=== PATIENT | male | born 1980 | race Caucasian/White ===

== ENCOUNTER 2017-09-13 02:47 | Inpatient (IN) | payer OTHER ==
[2017-09-13] VITALS (7 sets, daily range): BP systolic 130–175; BP diastolic 64–106; PULSE 53–105; RESP 16–20; TEMP 97.1–98.6; O2SAT 96–100
[~2017-09-13] VITALS: Ht 193 cm; Wt 95.0 kg
[2017-09-13] MEDS ORDERED: ONDANSETRON HCL 4 MG/2 ML VIAL IV PUSH ONE ×2 (03:30→05:45)
[2017-09-13 03:35] LABS: AUTOMATED NEUTROPHIL # 11.8 TH/MM3 (1.8-7.7); BASOPHIL # 0.1 TH/MM3 (0-0.2); BASOPHIL % 0.4 % (0.0-2.0); EOSINOPHIL # 0.2 TH/MM3 (0-0.4); EOSINOPHIL % 1.1 % (0.0-4.0); HEMATOCRIT 43.3 % (39.0-51.0); HEMOGLOBIN 15.5 GM/DL (13.0-17.0); LYMPH % 25.4 % (9.0-44.0); LYMPHOCYTE # 4.3 TH/MM3 (1.0-4.8); MEAN CELL VOLUME 93.8 FL (80.0-100.0); MEAN CORPUSCULAR HEMOGLOBIN 33.6 PG (27.0-34.0); MEAN CORPUSCULAR HGB CONC 35.8 % (32.0-36.0); MEAN PLATELET VOLUME 7.8 FL (7.0-11.0); MONO % 3.7 % (0.0-8.0); MONOCYTE # 0.6 TH/MM3 (0-0.9); NEUT % 69.4 % (16.0-70.0); PLATELET COUNT 224 TH/MM3 (150-450); RED BLOOD COUNT 4.61 MIL/MM3 (4.50-5.90)
[2017-09-13 04:02] LABS: BILIRUBIN, URINE NEG (NEG); BLOOD, URINE NEG (NEG); GLUCOSE,URINE NEG (NEG); KETONE, URINE 10 mg/dL (NEG); NITRITE,URINE NEG (NEG); URINE COLOR YELLOW (YELLW/STRAW); URINE LEUKOCYTE ESTERASE TRACE (NEG)
[2017-09-13 04:16] LABS: ALBUMIN 4.3 GM/DL (3.4-5.0); ALT (GPT) 21 U/L (12-78); AST (GOT) 18 U/L (15-37); BICARBONATE 31.2 MEQ/L (21.0-32.0); BLOOD UREA NITROGEN 18 MG/DL (7-18); CALCIUM 9.2 MG/DL (8.5-10.1); CHLORIDE 103 MEQ/L (98-107); CREATININE 0.97 MG/DL (0.60-1.30); GLOMERULAR FILTRATION RATE 88 ML/MIN (>89); GLUCOSE,RANDOM 122 MG/DL (74-106); SODIUM (NA) 139 MEQ/L (136-145)
[2017-09-13 04:17] LABS: ALKALINE PHOSPHATASE 49 U/L (45-117); TOTAL BILIRUBIN ADULT 0.9 MG/DL (0.2-1.0); TOTAL PROTEIN 8.1 GM/DL (6.4-8.2)
[2017-09-13] MEDS ORDERED: MORPHINE SULFATE 2 MG/ML INJ IV PUSH ONE (04:30)
[2017-09-13] MEDS ORDERED: SODIUM CHLOR 0.9% 1000 ML INJ 1,000 ML IV ONE ×2 (04:30→05:45)
[2017-09-13] MEDS ORDERED: IOHEXOL 350 MG/ML 10 ML VIAL (for RAD DIAG) IVCONTRAST ONE (04:37)
--- NOTE | 2017-09-13 04:54 | RADRPT ---
EXAM DATE/TIME: 09/13/2017 04:28 [place] COMPARISON: No previous studies available for comparison. INDICATIONS : Abdominal pain with nausea and vomiting. IV CONTRAST: 100 cc Omnipaque 350 (iohexol) IV ORAL CONTRAST: No oral contrast ingested. RADIATION DOSE: 7.44 CTDIvol (mGy) MEDICAL HISTORY : None SURGICAL HISTORY : None. ENCOUNTER: Initial ACUITY: 1 day PAIN SCALE: 6/10 LOCATION: abdomen TECHNIQUE: Volumetric scanning of the abdomen and pelvis was performed. Using automated exposure control and ad justment of the mA and/or kV according to patient size, radiation dose was kept as low as reasonably achievable to obtain optimal diagnostic quality images. DICOM format image data is available electro nically for review and comparison. FINDINGS: LOWER LUNGS: The visualized lower lungs are clear. LIVER: Homogeneous density without lesion. There is no dilation of the biliary tree. Numerous small stones in the gallbladder. The wall appears thick, for example series 2 image 41. No pericholecystic fluid. No duct stone or ductal dilatation demonstrated. SPLEEN: Normal size without lesion. PANCREAS: Within normal limits. KIDNEYS: Normal in size and shape. There is no mass, stone or hydronephrosis. ADRENAL GLANDS: Within normal limits. VASCULAR: There is no aortic aneurysm. BOWEL/MESENTERY: The stomach, small bowel, and colon demonstrate no acute abnormality. There is no free intraperitone al air or fluid. Normal appendix. ABDOMINAL WALL: Within normal limits. RETROPERITONEUM: There is no lymphadenopathy. BLADDER: No wall thickening or mass. REPRODUCTIVE: Within normal limits. INGUINAL: There is no lymphadenopathy or hernia. MUSCULOSKELETAL: No acute bony abnormality demonstrated. CONCLUSION: 1. Cholelithiasis and with CT findings concerning for early or mild acute cholecystitis in the proper clinical setting. No ductal dilatation. 2. Otherwise negative CT of the abdomen and pelvis. Patrice Grimes MD on September 13, 2017 at 4:50 Board Certified Radiologist. This report was verified electronically.
[2017-09-13] MEDS ORDERED: PIPERACIL-TAZO 4.5 GM PREMIX 100 ML IV ONE (05:45)
[2017-09-13] MEDS ORDERED: HYDROmorphone HCL PF 2 MG/ML VIAL IV PUSH ONE (05:45)
[2017-09-13] MEDS ORDERED: SODIUM CHLOR 0.9% 1000 ML INJ 1,000 ML IV SCH (05:57)
[2017-09-13] MEDS ORDERED: SENNOSIDES 8.6 MG TAB PO PRN (06:00)
[2017-09-13] MEDS ORDERED: BISACODYL 10 MG SUPP RECTAL PRN (06:00)
[2017-09-13] MEDS ORDERED: LACTULOSE SYRUP 20 GM/30 ML CUP PO PRN (06:00)
[2017-09-13] MEDS ORDERED: ONDANSETRON HCL 4 MG/2 ML VIAL IVP PRN (06:00)
[2017-09-13] MEDS ORDERED: SODIUM CHLORIDE 0.9% FLUSH 10 ML FLUSH IV FLUSH PRN (06:00)
[2017-09-13] MEDS ORDERED: MORPHINE SULFATE 2 MG/ML INJ IV PUSH PRN (06:00)
[2017-09-13] MEDS ORDERED: MAGNESIUM HYDROXIDE SUSP 30 ML CUP PO PRN (06:00)
[2017-09-13] MEDS ORDERED: ACETAMINOPHEN/HYDROcodone 325 MG/5 MG TAB PO PRN (06:00)
[2017-09-13] MEDS ORDERED: ACETAMINOPHEN 325 MG TAB PO PRN (06:00)
--- NOTE | 2017-09-13 06:04 | PD ---
HPI Chief Complaint: Abdominal Pain Time Seen by Provider: 04:18 Travel History International Travel<30 days: No Contact w/Intl Traveler<30days: No Traveled to known affect area: No History of Present Illness HPI 36-year-old male presents to the emergency department for complaint of severe epigastric pain since midnight. Patient denies any known medical problems. Patient had nausea and vomiting. Patient is vomited stomach contents without bilious emesis coffee-ground emesis or hematemesis. Patient denies diarrhea or change in bowel habits. Patient does admit to drinking alcohol this evening prior to going to bed. Patient states he does drink alcohol but has no chronic medical conditions. No prior history of peptic ulcer disease gastritis pancreatitis or gallbladder disorder. Patient denies chest pain or shortness of breath. PFSH Past Medical History Narrative Medical Negative past medical history negative surgical history; positive alcohol use; nursing notes reviewed Immunizations Current: Yes Tetanus Vaccination: Unknown Influenza Vaccination: No Social History Alcohol Use: No Tobacco Use: Yes Substance Use: No Allergies-Medications (Allergen,Severity, Reaction): Coded Allergies: No Known Allergies (Unverified , 09/13/17) Reported Meds & Prescriptions Reported Meds & Active Scripts Active No Active Prescriptions or Reported Medications Review of Systems Except as stated in HPI: all other systems reviewed are Neg General / Constitutional: No: Fever, Chills HENT: No: Congestion Cardiovascular: No: Chest Pain or Discomfort Respiratory: No: Shortness of Breath Gastrointestinal: Positive: Nausea, Vomiting, Abdominal Pain, No: Diarrhea, Hematemesis, Hematochezia, Loss of Appetite Genitourinary: No: Dysuria, Flank Pain Musculoskeletal: No: Myalgias, Arthralgias Skin: No Rash Neurologic: No: Weakness Psychiatric: No: Anxiety Hematologic/Lymphatic: No: Easy Bruising Physical Exam Narrative GENERAL: Well-developed well-nourished male no acute respiratory distress in obvious discomfort SKIN: Warm and dry. HEAD: Normocephalic. EYES: No scleral icterus. No injection or drainage. NECK: Supple, trachea midline. No JVD or lymphadenopathy. CARDIOVASCULAR: Regular rate and rhythm without murmurs, gallops, or rubs. RESPIRATORY: Breath sounds equal bilaterally. No accessory muscle use. GASTROINTESTINAL: Abdomen soft, reproducible epigastric tenderness to direct palpation, nondistended. MUSCULOSKELETAL: No cyanosis, or edema. BACK: Nontender without obvious deformity. No CVA tenderness. Data Data Last Documented VS Vital Signs Date Time Temp Pulse Resp B/P (MAP) Pulse Ox O2 Delivery O2 Flow Rate FiO2 09/13/17 03:45 98.6 105 18 135/64 (87) 98 Room Air Orders Orders Complete Blood Count With Diff (09/13/17 03:14) Comprehensive Metabolic Panel (09/13/17 03:14) Urinalysis - C+S If Indicated (09/13/17 03:14) Iv Access Insert/Monitor (09/13/17 03:14) Oxygen Administration (09/13/17 03:14) Oximetry (09/13/17 03:14) Lipase (09/13/17 03:14) Electrocardiogram (09/13/17 ) Ondansetron Inj (Zofran Inj) (09/13/17 03:30) Ct Abd/Pel W Iv Contrast(Rout) (09/13/17 ) Morphine Inj (Morphine Inj) (09/13/17 04:30) Sodium Chlor 0.9% 1000 Ml Inj (Ns 1000 M (09/13/17 04:30) Iohexol 350 Inj (Omnipaque 350 Inj) (09/13/17 04:37) Piperacil-Tazo 4.5 Gm Premix (Zosyn 4.5 (09/13/17 05:45) Ondansetron Inj (Zofran Inj) (09/13/17 05:45) Hydromorphone Pf Inj (Dilaudid Pf Inj) (09/13/17 05:45) NPO (09/13/17 05:36) Sodium Chlor 0.9% 1000 Ml Inj (Ns 1000 M (09/13/17 05:45) Troponin I (09/13/17 03:15) Admit Order (Ed Use Only) (09/13/17 ) Vital Signs (Adult) Q4H (09/13/17 05:55) Diet Npo (09/13/17 Breakfast) Activity Oob With Assistance (09/13/17 05:55) Notify Dr: Other (09/13/17 05:55) Labs Laboratory Tests Test 09/13/17 03:15 09/13/17 03:20 White Blood Count 17.0 TH/MM3 Red Blood Count 4.61 MIL/MM3 Hemoglobin 15.5 GM/DL Hematocrit 43.3 % Mean Corpuscular Volume 93.8 FL Mean Corpuscular Hemoglobin 33.6 PG Mean Corpuscular Hemoglobin Concent 35.8 % Red Cell Distribution Width 13.0 % Platelet Count 224 TH/MM3 Mean Platelet Volume 7.8 FL Neutrophils (%) (Auto) 69.4 % Lymphocytes (%) (Auto) 25.4 % Monocytes (%) (Auto) 3.7 % Eosinophils (%) (Auto) 1.1 % Basophils (%) (Auto) 0.4 % Neutrophils # (Auto) 11.8 TH/MM3 Lymphocytes # (Auto) 4.3 TH/MM3 Monocytes # (Auto) 0.6 TH/MM3 Eosinophils # (Auto) 0.2 TH/MM3 Basophils # (Auto) 0.1 TH/MM3 CBC Comment DIFF FINAL Differential Comment Blood Urea Nitrogen 18 MG/DL Creatinine 0.97 MG/DL Random Glucose 122 MG/DL Total Protein 8.1 GM/DL Albumin 4.3 GM/DL Calcium Level 9.2 MG/DL Alkaline Phosphatase 49 U/L Aspartate Amino Transf (AST/SGOT) 18 U/L Alanine Aminotransferase (ALT/SGPT) 21 U/L Total Bilirubin 0.9 MG/DL Sodium Level 139 MEQ/L Potassium Level 3.9 MEQ/L Chloride Level 103 MEQ/L Carbon Dioxide Level 31.2 MEQ/L Anion Gap 5 MEQ/L Estimat Glomerular Filtration Rate 88 ML/MIN Lipase 155 U/L Urine Color YELLOW Urine Turbidity CLEAR Urine pH 6.0 Urine Specific [place] 1.030 Urine Protein TRACE mg/dL Urine Glucose (UA) NEG mg/dL Urine Ketones 10 mg/dL Urine Occult Blood NEG Urine Nitrite NEG Urine Bilirubin NEG Urine Urobilinogen 2.0 MG/DL Urine Leukocyte Esterase TRACE Urine RBC 1 /hpf Urine WBC 1 /hpf Microscopic Urinalysis Comment CULT NOT INDICATED MDM Medical Decision Making Medical Screen Exam Complete: Yes Emergency Medical Condition: Yes Medical Record Reviewed: Yes Interpretation(s) Last Impressions Abdomen/Pelvis CT 09/13/17 0000 Signed Impressions: Service Date/Time: Wednesday, September 13, 2017 04:28 - CONCLUSION: 1. Cholelithiasis and with CT findings concerning for early or mild acute cholecystitis in the proper clinical setting. No ductal dilatation. 2. Otherwise negative CT of the abdomen and pelvis. Patrice Grimes MD CBC & BMP Diagram 09/13/17 03:15 Total Protein 8.1, Albumin 4.3, Calcium Level 9.2, Alkaline Phosphatase 49, Aspartate Amino Transf (AST/SGOT) 18, Alanine Aminotransferase (ALT/SGPT) 21, Total Bilirubin 0.9 Vital Signs Date Time Temp Pulse Resp B/P (MAP) Pulse Ox O2 Delivery O2 Flow Rate FiO2 09/13/17 03:45 98.6 105 18 135/64 (87) 98 Room Air 09/13/17 03:17 100 Room Air 09/13/17 03:17 65 20 165/97 (119) 100 Room Air 09/13/17 02:48 98.2 75 18 175/106 (129) 99 Room Air Differential Diagnosis Gastritis peptic ulcer disease pancreatitis cholecystitis choledocholithiasis atypical chest pain ACS colitis Narrative Course IV access obtained specimens collected and sent for resulting EKG performed shows sinus rhythm no acute ST elevation or injury pattern or ectopy noted; patient administered Zofran 4 mg IV morphine sulfate 3 mg IV and IV fluids Patient kept n.p.o. White count elevated at 17,000 Chemistries found to be grossly normal range CT abdomen pelvis per reading radiologist consistent with early cholecystitis without ductal dilatation or cholelithiasis Patient with ongoing abdominal pain administered Zosyn 4.5 g IV piggyback Zofran 4 mg IV Dilaudid 1 mg IV 1 L normal saline; patient's case discussed with Kasia GREY for admission Physician Communication Physician Communication discussed with DR Friend Diagnosis Primary Impression: Abdominal pain Qualified Codes: R10.13 - Epigastric pain Additional Impression: Cholecystitis Admitting Information Admitting Physician Requests: Admit Scripts No Active Prescriptions or Reported Meds Magy Sandhu MD Sep 13, 2017 06:04
[2017-09-13 06:06] LABS: TROPONIN I LESS THAN 0.02 NG/ML (0.02-0.05)
[2017-09-13] MEDS ORDERED: DOCUSATE SODIUM 50 MG/SENNA 8.6 MG TAB PO SCH (09:00)
[2017-09-13] MEDS ORDERED: SODIUM CHLORIDE 0.9% FLUSH 10 ML FLUSH IV FLUSH SCH (09:00)
--- NOTE | 2017-09-13 09:28 | HHI.HP ---
[facility] No Primary Care Physician Admission Diagnosis abdominal pain; early cholecystitis Diagnoses: (1) Cholecystitis (2) Abdominal pain Chief Complaint: Abdominal pain Travel History International Travel<30 Days: No Contact w/Intl Traveler <30 Da: No Traveled to Known Affected Are: No History of Present Illness The patient is a 36-year-old male who presented to the emergency department with complaint of severe epigastric pain that started last night at about midnight. He states that he had half a beer and then the pain started. The pain was 10/10, currently 7/10. The pain does not radiate. He did have nausea and vomiting late last night, nonbloody. Denies fever, chills, night sweats. No diarrhea or constipation. Review of Systems Constitutional: DENIES: Fever, Chills, Night Sweats Eyes: DENIES: Blurred vision, Vision loss Ears, nose, mouth, throat: DENIES: Hearing loss Respiratory: COMPLAINS OF: Cough (Chronic), DENIES: Wheezing, Sputum production , Shortness of breath Cardiovascular: DENIES: Chest pain, Palpitations, Dyspnea on Exertion, Lower Extremity Edema Gastrointestinal: COMPLAINS OF: Abdominal pain, Nausea, Vomiting, DENIES: Constipation, Diarrhea Genitourinary: DENIES: Urinary frequency, Urinary incontinence, Urgency, Hematuria, Dysuria, Nocturia Musculoskeletal: DENIES: Joint pain, Muscle aches Integumentary: DENIES: Pruritus, Rash Hematologic/lymphatic: DENIES: Bruising Neurologic: DENIES: Headache Past Family Social History Past Medical History The patient denies significant medical history Past Surgical History None Reported Medications None Allergies: Coded Allergies: No Known Allergies (Unverified , 09/13/17) Family History Hypertension Social History Smokes one half pack per day. Occasional alcohol use. Denies illicit drug use. Physical Exam Vital Signs Vital Signs Date Time Temp Pulse Resp B/P (MAP) Pulse Ox O2 Delivery O2 Flow Rate FiO2 09/13/17 08:41 97.3 67 17 139/90 (106) 97 09/13/17 07:52 130/75 (93) 09/13/17 06:00 63 16 169/91 (117) 96 Room Air 09/13/17 03:45 98.6 105 18 135/64 (87) 98 Room Air 09/13/17 03:17 100 Room Air 09/13/17 03:17 65 20 165/97 (119) 100 Room Air 09/13/17 02:48 98.2 75 18 175/106 (129) 99 Room Air Physical Exam GENERAL: This is a well-nourished, well-developed patient, in no apparent distress. SKIN: No rashes, ecchymoses or lesions. Cool and dry. HEAD: Atraumatic. Normocephalic. No temporal or scalp tenderness. EYES: Pupils equal round and reactive. Extraocular motions intact. No scleral icterus. No injection or drainage. ENT: Nose without bleeding, purulent drainage or septal hematoma. Throat without erythema, tonsillar hypertrophy or exudate. Uvula midline. Airway patent. CARDIOVASCULAR: Regular rate and rhythm without murmurs, gallops, or rubs. RESPIRATORY: Clear to auscultation. Breath sounds equal bilaterally. No wheezes , rales, or rhonchi. GASTROINTESTINAL: Abdomen soft, tender to palpation in the midepigastric region , nondistended. No hepato-splenomegaly, or palpable masses. No guarding. MUSCULOSKELETAL: Extremities without clubbing, cyanosis, or edema. No joint tenderness, effusion, or edema noted. No calf tenderness. Negative Homans sign bilaterally. NEUROLOGICAL: Awake and alert. Motor and sensory grossly within normal limits. Normal speech. Laboratory Laboratory Tests Test 09/13/17 03:15 09/13/17 03:20 White Blood Count 17.0 Red Blood Count 4.61 Hemoglobin 15.5 Hematocrit 43.3 Mean Corpuscular Volume 93.8 Mean Corpuscular Hemoglobin 33.6 Mean Corpuscular Hemoglobin Concent 35.8 Red Cell Distribution Width 13.0 Platelet Count 224 Mean Platelet Volume 7.8 Neutrophils (%) (Auto) 69.4 Lymphocytes (%) (Auto) 25.4 Monocytes (%) (Auto) 3.7 Eosinophils (%) (Auto) 1.1 Basophils (%) (Auto) 0.4 Neutrophils # (Auto) 11.8 Lymphocytes # (Auto) 4.3 Monocytes # (Auto) 0.6 Eosinophils # (Auto) 0.2 Basophils # (Auto) 0.1 CBC Comment DIFF FINAL Differential Comment Blood Urea Nitrogen 18 Creatinine 0.97 Random Glucose 122 Total Protein 8.1 Albumin 4.3 Calcium Level 9.2 Alkaline Phosphatase 49 Aspartate Amino Transf (AST/SGOT) 18 Alanine Aminotransferase (ALT/SGPT) 21 Total Bilirubin 0.9 Sodium Level 139 Potassium Level 3.9 Chloride Level 103 Carbon Dioxide Level 31.2 Anion Gap 5 Estimat Glomerular Filtration Rate 88 Troponin I LESS THAN 0.02 Lipase 155 Urine Color YELLOW Urine Turbidity CLEAR Urine pH 6.0 Urine Specific [place] 1.030 Urine Protein TRACE Urine Glucose (UA) NEG Urine Ketones 10 Urine Occult Blood NEG Urine Nitrite NEG Urine Bilirubin NEG Urine Urobilinogen 2.0 Urine Leukocyte Esterase TRACE Urine RBC 1 Urine WBC 1 Microscopic Urinalysis Comment CULT NOT INDICATED Result Diagram: 09/13/175 09/13/17 0315 Imaging Last Impressions Abdomen/Pelvis CT 09/13/17 0000 Signed Impressions: Service Date/Time: Wednesday, September 13, 2017 04:28 - CONCLUSION: 1. Cholelithiasis and with CT findings concerning for early or mild acute cholecystitis in the proper clinical setting. No ductal dilatation. 2. Otherwise negative CT of the abdomen and pelvis. Patrice Grimes MD Caprini VTE Risk Assessment Caprini VTE Risk Assessment: No/Low Risk (score <= 1) Caprini Risk Assessment Model Point Value = 1 Point Value = 2 Point Value = 3 Point Value = 5 Age 41-60 Minor surgery BMI > 25 kg/m2 Swollen legs Varicose veins or History of unexplained or recurrent spontaneous Oral contraceptives or hormone replacement Sepsis (< 1 month) Serious lung disease, including pneumonia (< 1 month) Abnormal pulmonary function Acute myocardial infarction Congestive heart failure (< 1 month) History of inflammatory bowel disease Medical patient at bed rest Age 61-74 Arthroscopic surgery Major open surgery (> 45 min) Laparoscopic surgery (> 45 min) Malignancy Confined to bed (> 72 hours) Immobilizing plaster cast Central venous access Age >= 75 History of VTE Family history of VTE Factor V Leiden Prothrombin [id number] Lupus anticoagulant Anticardiolipin antibodies Elevated serum homocysteine Heparin-induced thrombocytopenia Other congenital or acquired thrombophilia Stroke (< 1 month) Elective arthroplasty Hip, pelvis, or leg fracture Acute spinal cord injury (< 1 month) Prophylaxis Regimen Total Risk Factor Score Risk Level Prophylaxis Regimen 0-1 Low Early ambulation 2 Moderate Order ONE of the following: *Sequential Compression Device (SCD) *Heparin 5000 units SQ BID 3-4 Higher Order ONE of the following medications: *Heparin 5000 units SQ TID *Enoxaparin/Lovenox 40 mg SQ daily (WT < 150 kg, CrCl > 30 mL/min) *Enoxaparin/Lovenox 30 mg SQ daily (WT < 150 kg, CrCl > 10-29 mL/min) *Enoxaparin/Lovenox 30 mg SQ BID (WT < 150 kg, CrCl > 30 mL/min) AND/OR *Sequential Compression Device (SCD) 5 or more Highest Order ONE of the following medications: *Heparin 5000 units SQ TID (Preferred with Epidurals) *Enoxaparin/Lovenox 40 mg SQ daily (WT < 150 kg, CrCl > 30 mL/min) *Enoxaparin/Lovenox 30 mg SQ daily (WT < 150 kg, CrCl > 10-29 mL/min) *Enoxaparin/Lovenox 30 mg SQ BID (WT < 150 kg, CrCl > 30 mL/min) AND *Sequential Compression Device (SCD) Assessment and Plan Assessment and Plan 1. Abdominal pain, acute cholecystitis: Continue pain control. Clear liquid diet. Consult general surgery for further evaluation. Continue antibiotics. 2. Leukocytosis: Secondary to above. Monitor labs. 3. Tobacco abuse: Counseled to quit smoking. 4. DVT prophylaxis: SCDs, MARISOL hose. Problem Qualifiers (1) Abdominal pain: Qualified Codes: R10.13 - Epigastric pain Yusuf Gonzalez MD Sep 13, 2017 09:28
[2017-09-13] MEDS ORDERED: PIPERACIL-TAZO 4.5 GM PREMIX 100 ML IV SCH (12:00)
--- NOTE | 2017-09-13 12:49 | EKG ---
Date Performed: 09/13/2017 Time Performed: 03:17:17 PTAGE: 36 years EKG: Sinus rhythm NORMAL ECG NO PREVIOUS TRACING DOCTOR: Neri Wing Interpretating Date/Time 09/13/2017 12:48:11
--- NOTE | 2017-09-13 14:02 | PD.CONS ---
HPI Service General surgery Consult Requested By Dr. Gonzalez Reason for Consult Calculus cholecystitis Primary Care Physician No Primary Care Physician History of Present Illness Still pleasant 36-year-old male tobacco abuser who last night after dinner experienced a midepigastric abdominal pain associated with nausea and vomiting. He threw up some of what he ate. He denies hematemesis. His pain was very severe. He went to the emergency department where evaluation demonstrated findings suggestive of calculus cholecystitis. He was admitted provided antibiotics IV fluids pain medication and a surgical consultation was requested. He has no prior history of abdominal surgeries. He is unsure whether there is any family history of gallbladder disease. He has had normal bowel and bladder function. Review of Systems Constitutional: COMPLAINS OF: Weight loss (50 pounds over the last 6 months, intentional.) Past Family Social History Past Medical History None other than frequent sinus infections for which she has never used antibiotics he just let them run their course Past Surgical History None Reported Medications None Allergies: Coded Allergies: No Known Allergies (Unverified , 09/13/17) Active Ordered Medications Current Medications Medications (Trade) Dose Ordered Sig/Lea Route Start Time Stop Time Status Last Admin Piperacillin Sod/ Tazobactam Sod 100 ml @ 200 mls/hr Q6H IV 09/13/17 12:00 Sodium Chloride 1,000 ml @ 100 mls/hr Q10H IV 09/13/17 05:57 (NS Flush) 2 ml UNSCH PRN IV FLUSH 09/13/17 06:00 (NS Flush) 2 ml BID IV FLUSH 09/13/17 09:00 09/13/17 09:13 (Zofran Inj) 4 mg Q6H PRN IVP 09/13/17 06:00 (Tylenol) 650 mg Q6H PRN PO 09/13/17 06:00 ([place] 5-325 Mg) 1 tab Q4H PRN PO 09/13/17 06:00 09/13/17 09:14 (Morphine Inj) 2 mg Q3H PRN IV PUSH 09/13/17 06:00 (Love-Colace) 1 tab BID PO 09/13/17 09:00 09/13/17 09:13 (Milk Of Magnesia Liq) 30 ml Q12H PRN PO 09/13/17 06:00 (Senokot) 17.2 mg Q12H PRN PO 09/13/17 06:00 (Dulcolax Supp) 10 mg DAILY PRN RECTAL 09/13/17 06:00 (Lactulose Liq) 30 ml DAILY PRN PO 09/13/17 06:00 Family History No history of cancer diabetes. History of hypertension. Social History He is a half to three-quarter pack day tobacco abuser and has been for 20 years. He does drink alcohol but denies any complications associated with that such as DUI. He denies any risk factors for hepatitis or HIV. He is from [place]. 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 He is recently been working in the [place] area. He is here on vacation. His girlfriend is here visiting him. He lives in [place]. Physical Exam Vital Signs Vital Signs Date Time Temp Pulse Resp B/P (MAP) Pulse Ox O2 Delivery O2 Flow Rate FiO2 09/13/17 11:44 97.1 53 18 131/79 (96) 99 09/13/17 08:41 97.3 67 17 139/90 (106) 97 09/13/17 07:52 130/75 (93) 09/13/17 06:00 63 16 169/91 (117) 96 Room Air 09/13/17 03:45 98.6 105 18 135/64 (87) 98 Room Air 09/13/17 03:17 100 Room Air 09/13/17 03:17 65 20 165/97 (119) 100 Room Air 09/13/17 02:48 98.2 75 18 175/106 (129) 99 Room Air Physical Exam Is a well-developed well-nourished male was up walking around his room when I entered his room. He is pleasant and cooperative exam. HEENT is normocephalic atraumatic. His pupils are equal round and reactive to light. His sclera are anicteric. His oropharynx is clear without mucosal lesions. He has good dentition. His neck is supple without adenopathy he has a midline trachea no jugular venous distention. His lung sounds are clear and equal. His heart sounds are regular without murmur rub or gallop. His abdomen is thin soft and nondistended without obvious hernias or scars. He has normal bowel sounds. He is mildly tender to palpation just to the right of midline in the midepigastric area. He has no rebound or guarding. Genital and rectal exams were deferred. His extremities demonstrate no cyanosis clubbing or edema. He is equal bilateral radial and dorsalis pedis pulses. 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 Laboratory Laboratory Tests Test 09/13/17 03:15 09/13/17 03:20 White Blood Count 17.0 Red Blood Count 4.61 Hemoglobin 15.5 Hematocrit 43.3 Mean Corpuscular Volume 93.8 Mean Corpuscular Hemoglobin 33.6 Mean Corpuscular Hemoglobin Concent 35.8 Red Cell Distribution Width 13.0 Platelet Count 224 Mean Platelet Volume 7.8 Neutrophils (%) (Auto) 69.4 Lymphocytes (%) (Auto) 25.4 Monocytes (%) (Auto) 3.7 Eosinophils (%) (Auto) 1.1 Basophils (%) (Auto) 0.4 Neutrophils # (Auto) 11.8 Lymphocytes # (Auto) 4.3 Monocytes # (Auto) 0.6 Eosinophils # (Auto) 0.2 Basophils # (Auto) 0.1 CBC Comment DIFF FINAL Differential Comment Blood Urea Nitrogen 18 Creatinine 0.97 Random Glucose 122 Total Protein 8.1 Albumin 4.3 Calcium Level 9.2 Alkaline Phosphatase 49 Aspartate Amino Transf (AST/SGOT) 18 Alanine Aminotransferase (ALT/SGPT) 21 Total Bilirubin 0.9 Sodium Level 139 Potassium Level 3.9 Chloride Level 103 Carbon Dioxide Level 31.2 Anion Gap 5 Estimat Glomerular Filtration Rate 88 Troponin I LESS THAN 0.02 Lipase 155 Urine Color YELLOW Urine Turbidity CLEAR Urine pH 6.0 Urine Specific [place] 1.030 Urine Protein TRACE Urine Glucose (UA) NEG Urine Ketones 10 Urine Occult Blood NEG Urine Nitrite NEG Urine Bilirubin NEG Urine Urobilinogen 2.0 Urine Leukocyte Esterase TRACE Urine RBC 1 Urine WBC 1 Microscopic Urinalysis Comment CULT NOT INDICATED Result Diagram: 09/13/1731409/13/[address] the abdomen and pelvis demonstrates a multiple tiny gallstones and a mildly thickened gallbladder wall without pericholecystic fluid Assessment and Plan Assessment and Plan This is a 36-year-old gentleman who experienced severe upper abdominal pain nausea with emesis after his evening meal last night. CT findings are suggestive of calculus cholecystitis. He has been admitted admitted placed on IV fluids and antibiotics. His pain is improved. I discussed in detail the gallbladder and gallstones and the role creating a calculus cholecystitis. The normal anatomy of the normal function of the gallbladder and the option to pursuing laparoscopic cholecystectomy were discussed in detail. The procedure plus risks of bleeding infection injury to liver common bile duct and intestine as well as the risks of DVT pulmonary embolus and expectations for recovery were reviewed in detail. I offered laparoscopic cholecystectomy today or tomorrow morning depending on what was available in the operating room. Unfortunately the patient feels like his insurance plan is very poor and financially he is unable to continue with this present hospitalization and surgical treatment for his gallbladder. I explained in great detail the risks of recurrent cholecystitis common bile duct stones jaundice and gallstone pancreatitis and even rarely associated with pancreatitis. He got fairly upset regarding his financial situation. I did discuss with the charge nurse getting a registered nurse hh case manager to see the patient regarding potential financial assistance. I also called Dr. Gonzalez the patient's primary care doctor/ admitting and explained the situation. If I can be of further assistance please let me know. Cortez Arellano MD Sep 13, 2017 14:01
== END 2017-09-13 14:55 | disposition left against medical advice (07) | DRG 446 ==
LOC: NEPC 02:47 → NEDA 05:57 → OBSVTOIN 06:02 → N06B 07:51
PROVIDERS: ADMIT Family Medicine; ATTEND Family Medicine
DX: K80.00 Calculus of gallbladder with acute cholecystitis without obstruction (principal); F17.210 Nicotine dependence, cigarettes, uncomplicated
CPT/HCPCS: 74177; 80053; 81001; 83690; 84484; 85025; 93005; 96361; 96374; 96375; J1170; J2270; J2405; J2543; J7030; Q9967